=== PATIENT | male | born 1990 | race Caucasian/White ===

== ENCOUNTER → 2017-10-16 | Outpatient (CLI) | payer OTHER | LOC: CIMAGING 15:37 | PROVIDERS: ATTEND Orthopaedic Surgery | DX: Z09 Encounter for follow-up examination after completed treatment for conditions other than malignant neoplasm (principal); R60.9 Edema, unspecified | CPT/HCPCS: 93971-PO ==

== ENCOUNTER 2017-12-12 06:49 | Emergency (ER) | payer OTHER ==
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
[2017-12-12 09:11] VITALS: BP 137/80
== END 2017-12-12 09:15 | disposition home or self-care (01) ==
LOC: EDUNIT#
DX: S01.81XA Laceration without foreign body of other part of head, initial encounter (principal); S01.511A Laceration without foreign body of lip, initial encounter; V18.4XXA Pedal cycle driver injured in noncollision transport accident in traffic accident, initial encounter; Y92.410 Unspecified street and highway as the place of occurrence of the external cause; Y99.8 Other external cause status; Y93.55 Activity, bike riding